=== PATIENT | female | born 1980 | race African-American/Black ===

== ENCOUNTER 2019-02-23 10:52 | Emergency (ER) | payer BC ==
[~2019-02-23] VITALS: Ht 167.6 cm; Wt 92.5 kg
[2019-02-23 11:14] VITALS: Ht 167.6 cm; Wt 92.5 kg
[2019-02-23 12:13] LABS: PLATELET COUNT 247 x10^3mcL (130-400); RED CELL DISTRIBUTION WIDTH 13.3 % (11.5-14.5)
[2019-02-23 12:17] LABS: CALCIUM 9.2 mg/dL (8.5-10.1); CARBON DIOXIDE 21.6 mmol/L (21-32); CHLORIDE SERUM 104 mmol/L (98-107); GFR1 > 60 mL/min; GLUCOSE SERUM 119 mg/dL (74-106); POTASSIUM SERUM 3.2 mmol/L (3.5-5.1); SODIUM SERUM 139 mmol/L (136-145)
[2019-02-23 12:20] LABS: ALKALINE PHOSPHATASE 77 U/L (46-116); ALT/SGPT 46 U/L (14-59); AST/SGOT 23 U/L (15-37); BILIRUBIN TOTAL 0.7 mg/dL (0.20-1.00); TOTAL PROTEIN, SERUM 8.2 g/dL (6.4-8.2)
[2019-02-23 12:58] LABS: BASOPHIL % 0 % (0-2)
[2019-02-23 14:21] LABS: UA SPECIFIC GRAVITY 1.015 (1.005-1.035); microscopic required? YES; urine erythrocyte NEGATIVE (NEGATIVE)
[2019-02-23 15:00] VITALS: BP 123/68
== END 2019-02-23 15:00 | disposition home or self-care (01) ==
LOC: ED 10:52
PROVIDERS: Emergency Medicine
DX: A08.4 Viral intestinal infection, unspecified (principal); F41.9 Anxiety disorder, unspecified; F17.210 Nicotine dependence, cigarettes, uncomplicated; Z85.41 Personal history of malignant neoplasm of cervix uteri
CPT/HCPCS: 99406; J7030; Q0092